=== PATIENT | female | born 1980 | race Caucasian/White ===

== ENCOUNTER → 2020-10-14 | Outpatient (CLI) | payer MEDICAID ==
--- NOTE | 2020-10-15 12:54 | Diagnostic Imaging Report ---
INDICATION: Routine screening. No prior mammograms are available for comparison. This is a baseline study. 2-D and 3-D bilateral screening mammography was performed with CAD. Both breasts are heterogeneously dense, limiting the sensitivity of mammography. There is an intraparenchymal lymph node in the outer left breast. No spiculated mass or malignant appearing microcalcifications are seen. Axillae are unremarkable. IMPRESSION: BI-RADS Category 2 No mammographic features suspicious for malignancy are identified. ACR BI-RADS Category 2: Benign findings. Result letter will be mailed to the patient. Note: At least 10% of breast cancer is not imaged by mammography. Dictated by: Dictated on workstation # [id number]
== END ==
LOC: RAD 14:57
PROVIDERS: ATTEND Nurse Practitioner
DX: Z12.31 Encounter for screening mammogram for malignant neoplasm of breast (principal)
CPT/HCPCS: 77063; 77067

== ENCOUNTER → 2022-05-14 | Outpatient (CLI) | payer OTHER ==
--- NOTE | 2022-05-14 15:59 | Diagnostic Imaging Report ---
INDICATION: Back pain. FINDINGS: 5 views. Good alignment of the vertebral bodies. Body height is well-maintained throughout. There is loss of normal lordotic curve. There is degenerative cervical disc disease at C5-C6 and C6-C7. Mild sclerotic endplate change with mild hypertrophic lipping of the endplates anteriorly. Oblique view showed no foraminal encroachment. Facets show good alignment. The odontoid is intact. The atlantoaxial joint appears normal. The prevertebral soft tissues are not widened. IMPRESSION: Cervical spondylosis C5-C6 and C6-C7. Dictated by: Dictated on workstation # [id number]
--- NOTE | 2022-05-14 15:59 | Diagnostic Imaging Report ---
LUMBAR SPINE - 2-3 VIEWS INDICATION: Low back pain COMPARISON: None available. TECHNIQUE: 3 views of the lumbar spine FINDINGS: Normal alignment of the lumbar spine. No compression deformity or ankylosis. Mild degenerative disc space narrowing at L4-L5 and L3-L4. SI joints are normal in appearance. IMPRESSION: Multilevel mild degenerative disc disease. Dictated by: Dictated on workstation # [id number]
== END ==
LOC: RAD 11:30
PROVIDERS: ATTEND Family Medicine
DX: M47.812 Spondylosis without myelopathy or radiculopathy, cervical region (principal); M51.36 Other intervertebral disc degeneration, lumbar region
CPT/HCPCS: 72050; 72100